=== PATIENT | female | born 1955 | race African-American/Black ===

== ENCOUNTER 2017-01-18 19:58 | Emergency (ER) | payer BC ==
[~2017-01-18 19:58] MED LIST: ALPRAZOLAM PO; AMARYL PO; ASPIRIN PO; ATENOLOL PO; BACLOFEN10 MG PO; CARDIZEM60 M1 PO; CELEXA20 MG PO; CLONIDINE HCL0.1 MG PO; CLONIDINE PO; COATED ASPIRIN325 M1 PO; CORTANE-B OTIC10 ML OT; DARVOCET-N 1001 TAB PO; FISH OIL500 MG PO; FLONASE16 GM; GUAIFENESI1 TAB.SR . PO; HUMALOG100 U/ML; KCL PO; LASIX PO; LEVAQUIN PO; LEVEMIR FL100 UNIT/1 SQ; LEVEMIR SUBQ; LEVOTHYROXINE 50 MG; LEVOTHYROXINE150 MC1 PO; LORAZEPAM1 MG PO; LOW DOSE ASPIRI81 M1 PO; MEDROL PO; MELATONIN5 M1 PO; METFORMIN PO; METOPROLOL SUCC25 MG PO; MOBIC PO; NAPROXEN PO; NORCO 10/325 TA1 TAB PO; NORCO 5/325 TAB1 TAB PO; NORCO1 TAB 10/3 PO; NORFLEX100 MG PO; PLAVIX PO; POTASSIUM CHLO10 MEQ PO; PREDNISONE PO; PRILOSEC PO; PROTONIX PO; QUINAM PO; QUININE 324 MG; REQUIP1 MG PO; REQUIP5 MG PO; SYNTHROID PO; TAMIFLU75 M1 PO; TOPROL XL50 MG PO; TYLENOL325 M1 PO; ZOCOR PO
== END 2017-01-18 20:30 | disposition home or self-care (01) ==
LOC: SED 19:58
DX: L98.9 Disorder of the skin and subcutaneous tissue, unspecified (principal); I10 Essential (primary) hypertension; E11.9 Type 2 diabetes mellitus without complications; F32.9 Major depressive disorder, single episode, unspecified; Z86.79 Personal history of other diseases of the circulatory system; Z86.73 Personal history of transient ischemic attack (TIA), and cerebral infarction without residual deficits; Z98.890 Other specified postprocedural states
CPT/HCPCS: 99282

== ENCOUNTER → 2017-02-01 | Outpatient (CLI) | payer BC ==
--- NOTE | ~2017-02-01 | MY11 ---
[facility] A Service [facility] RADIOLOGY TEXT RESULTS PATIENT: GABRIELLE ROJO LOCATION: [facility] : 51 UNIT #: [id number] AGE: [address]: Stephanie Kim APRN SEX: F ORDER DR: [id number] [address] [address] [id number] O MR#: [id number] Acc #: [id number] NAME: GABRIELLE ROJO : 1955 SEX: F STUDY DATE/TIME: 02/01/2017 14:57 UNIT: [facility] ROOM: STUDY DESCRIPTION: MY Mammogram Screening Dig [place] Attending Physician: Stephanie Kim A.P.R.N. Referring Physician: Stephanie Kim A.P.R.N. Ordering Physician: Stephanie Kim A.P.R.N. Primary Care Physician: Stephanie Kim A.P.R.N. MEDICAL IMAGING REPORT This report is preliminary unless electronic signature is present. EXAM Digital screening mammogram. DATE OF EXAM 02/01/2017 LOCATION [facility]. HISTORY 61-year-old woman, no risk elevation. New baseline. COMPARISON None. Prior mammograms cannot be located. TECHNIQUE Digital imaging of each breast was completed utilizing screening protocol. Review includes FDA-approved CAD device. FINDINGS Breast parenchyma is heterogeneous with subareolar duct prominence bilaterally. There is no suspicious mass. There are no microcalcifications and no architectural deformity. IMPRESSION Benign mammogram. Annual screening recommended. Patients over the age of 40 are entered into a reminder system with target due date for the next mammogram. A result letter will also be sent to the patient. BIRADS: 2 Benign findings. [facility] A Service [facility] RADIOLOGY TEXT RESULTS PATIENT: GABRIELLE ROJO LOCATION: [facility] : 51 UNIT #: [id number] AGE: [address]: Stephanie Kim APRN SEX: F ORDER DR: Dictated by... Rene Sebastian M.D. THIS IS AN ELECTRONICALLY VERIFIED REPORT Rene Sebastian M.D. at 02/04/2017 8:01 AM MO/[email or web address] TD: 02/01/2017 17:40 JOB #: [id number] MEDICAL IMAGING REPORT Page 1 of 1
== END | disposition home or self-care (01) ==
LOC: SMAM 14:26
DX: Z12.31 Encounter for screening mammogram for malignant neoplasm of breast (principal)
CPT/HCPCS: G0202